=== PATIENT | female | born 1980 | race Caucasian/White ===

== ENCOUNTER → 2016-05-10 | Outpatient (CLI) | payer OTHER ==
[~2016-05-10] MED LIST: LEVO25TA4 PO; METF10002 PO; OXYC-302 PO; PREN1TAB56 PO
== END | disposition home or self-care (01) ==
LOC: CFH 14:55
PROVIDERS: ATTEND Physician Assistant
DX: M54.2 Cervicalgia (principal); M25.512 Pain in left shoulder; R22.32 Localized swelling, mass and lump, left upper limb
CPT/HCPCS: 72040